=== PATIENT | female | born 1995 | race African-American/Black ===

== ENCOUNTER 2016-12-05 13:11 | Emergency (ER) | payer OTHER ==
[~2016-12-05 13:11] MED LIST: ACID REFLUX MED; ALLERGY RELIEF10 M2 PO; AUGMENTIN PO; BACTRIM DS TABL1 TA1 PO; ERYTHROMYCIN O3.5 GM OD; IBUPROFEN600 MG PO; K-TAB ER20 MEQ PO; KEFLEX250 M2 PO; NO MEDICATIONS; PHENERGAN25 M1 PO; VICODIN 5/500 T1 TAB PO
[2016-12-05 13:13] LABS: URINE SOURCE CLEAN CATCH
[2016-12-05 13:22] LABS: URINE APPEARANCE HAZY; URINE BILIRUBIN NEG (NEG); URINE BLOOD NEG (NEG); URINE COLOR YELLOW; URINE GLUCOSE NEG (NORM); URINE KETONE NEG (NEG); URINE LEUKOCYTE ESTERASE TRACE (NEG); URINE NITRATE NEG (NEG); URINE PROTEIN NEG (NEG); URINE SPECIFIC GRAVITY 1.015 (1.003-1.035); URINE UROBILINOGEN 0.2 MG/DL (NORM)
[2016-12-05 13:35] LABS: MICRO INDICATED? YES
[2016-12-05 13:37] LABS: CULTURE INDICATED? YES; URINE BACTERIA 3+ (NEG); URINE MUCUS PRESENT; URINE RBC 0-2 /[HPF] (0-2); URINE SQUAMOUS EPITHELIAL CELL MODERATE /[HPF]
== END 2016-12-05 14:31 | disposition home or self-care (01) ==
LOC: SED 13:11
PROVIDERS: Nurse Practitioner Family
DX: R30.0 Dysuria (principal); K21.9 Gastro-esophageal reflux disease without esophagitis
CPT/HCPCS: 81003; 87086; 99283